=== PATIENT | female | born 1970 | race American Indian/Alaskan Native ===

== ENCOUNTER 2016-11-17 09:37 | Emergency (ER) | payer MEDICAID ==
[2016-11-17 10:20] VITALS: BP 158/99
--- NOTE | 2016-11-17 12:05 | Emergency Department Report ---
HPI - General Chief Complaint: Sore Throat Time Seen by Provider: 11/17/16 11:52 - HPI HPI: 46-year-old female with a past medical history of GERD. Patient is currently taking omeprazole and Carafate for her GERD. Patient reports that the last week or GERD as gotten really bad to the point that is causing her sore throat. She says that her throat otero she has been seen by the ear nose and throat doctor as well as her primary medical doctor and her GI doctor. Last week for the same and was given Tylenol Benadryl lidocaine with no relief. Patient reports that she has gone through 2 bottles of lidocaine without any relief. She reports that she is followed up by Kristin on [facility], as well as Dr. Tamez GI specialist. ED Past Medical Hx - Past Medical History Hx GERD: Yes Hx Asthma: Yes Additional medical history: SCIATIC NERVE PROBLEM, - Surgical History Past Surgical History?: Yes Additional Surgical History: ABLATION TO BACK, Tonsilectomy, c section - Social History Smoking Status: Never Smoker Substance Use Type: None - Medications Home Medications: Home Medications Medication Instructions Recorded Confirmed Last Taken Type Cyclobenzaprine [Flexeril 10mg] 10 mg PO BID 09/23/14 09/23/14 09/23/14 History Tramadol HCl [traMADol] 50 mg PO TID 09/23/14 09/23/14 09/23/14 History Ondansetron [Zofran Odt] 4 mg PO Q6H #14 tab.rapdis 09/24/14 Unknown Rx Prednisone [Prednisone 10 mg 10 mg PO .TAPER #1 tab.ds.pk 09/24/14 Unknown Rx (6-Day Pack, 21 Tabs)] oxyCODONE /ACETAMINOPHEN [Percocet 1 tab PO Q6HR PRN #14 tablet 09/24/14 Unknown Rx 5/325] Famotidine [Pepcid] 20 mg PO BID #60 tablet 10/28/15 Unknown Rx Hyoscyamine Subl [Levsin Sl 0.125 0.125 mg SL Q4HR PRN #10 tablet 10/28/15 Unknown Rx TAB] Ondansetron [Zofran Odt] 4 mg PO Q6H PRN #14 tab.rapdis 10/28/15 Unknown Rx Pantoprazole [Protonix] 40 mg PO BID #60 tablet 10/28/15 Unknown Rx Sulfamethoxazole/Trimethoprim 1 each PO BID #10 tablet 10/28/15 Unknown Rx [Bactrim DS TAB] HYDROcodone/APAP 5-325 [Kingsley 1 each PO Q6HR PRN #14 tablet 08/31/16 Unknown Rx 5-325 mg TAB] Acetaminophen with Codeine 1 tab PO Q6HR #40 tab 11/17/16 Unknown Rx [Acetaminophen-Codeine #4 TAB] Omeprazole 40 mg PO BID #60 capsule. 11/17/16 Unknown Rx ED Review of Systems ROS: Stated complaint: THROAT PAIN Other details as noted in HPI ENT: throat pain Physical Exam - Physical Exam Vital Signs: Vital Signs 11/17/16 10:17 Temperature 98.5 F Pulse Rate 63 Respiratory 18 Rate Blood Pressure 158/99 O2 Sat by Pulse 100 Oximetry Physical Exam: He is alert and oriented 3. Cardiovascular S1-S2 regular rate and rhythm respiratory clear to auscultation bilaterally abdomen soft nontender nondistended HEENT throat is erythematous nonerythematous she is without tonsils. Mouth is moist ED Course Vital Signs 11/17/16 10:17 Temperature 98.5 F Pulse Rate 63 Respiratory 18 Rate Blood Pressure 158/99 O2 Sat by Pulse 100 Oximetry ED Medical Decision Making - Medical Decision Making Been evaluated by this provider in fast track. Discussed with patient that she really needs to follow up her GI doctor will give her a prescription for Tylenol 4 to help with the pain as well as asked to increase her omeprazole to 40 mg twice a day for until she is able to get into her her GI specialist. Recommend patient continue all her medications as prescribed keep all appointments. Critical care attestation.: If time is entered above; I have spent that time in minutes in the direct care of this critically ill patient, excluding procedure time. ED Disposition Clinical Impression: GERD with esophagitis Disposition: DISCHARGED TO HOME OR SELFCARE Is pt being admited?: No Does the pt Need Aspirin: No Condition: Stable Instructions: Gastroesophageal Reflux Disease (ED) Additional Instructions: Increase omeprazole to twice a day. Take the Tylenol for when necessary for excruciating pain. Take all of the medication as prescribed is very important to follow-up with Dr. Schroeder to GI specialist. Need to follow with him within a week. For further evaluation Prescriptions: Acetaminophen with Codeine [Acetaminophen-Codeine #4 TAB] 1 tab PO Q6HR #40 tab Omeprazole 40 mg PO BID #60 capsule.dr Referrals: PRIMARY CARE, [Primary Care Provider] - 3-5 Days [facility] [Outside] - 3-5 Days
[2016-11-17] MEDS ORDERED: NORCO 5/325 PO ONE (12:11)
== END 2016-11-17 12:20 | disposition home or self-care (01) ==
LOC: ED 09:37
DX: K21.0 Gastro-esophageal reflux disease with esophagitis (principal); J45.909 Unspecified asthma, uncomplicated
CPT/HCPCS: 99282

== ENCOUNTER 2017-02-24 15:35 | Emergency (ER) | payer MEDICAID ==
[2017-02-24 17:18] VITALS: BP 140/93
--- NOTE | 2017-02-24 17:21 | Emergency Department Report ---
Chief Complaint: Abdominal Pain Stated Complaint: ABD PAIN - HPI History of Present Illness: severe epigastric pain a/c gerd no n/v home meds not working has seen gi in past ro perf/choley/acs vss - ROS Review of Systems: as noted - Exam Vital Signs: Vital Signs 02/24/17 17:10 Temperature 98.8 F Pulse Rate 78 Respiratory 16 Rate Blood Pressure 140/93 O2 Sat by Pulse 100 Oximetry MSE screening note: Focused history and physical exam performed. Due to findings the following was ordered: ED Disposition for MSE Condition: Stable Instructions: Abdominal Pain (ED)
[2017-02-24 18:11] LABS: Basophils % (Auto) 0.5 % (0.0-1.8); Eosinophils % (Auto) 0.8 % (0.0-4.3); Hematocrit 35.3 % (30.3-42.9); Hemoglobin 11.1 gm/dl (10.1-14.3); Mean Corpuscular HGB Conc 32 % (30-34); Mean Corpuscular Volume 82 fl (79-97); Platelet Count 321 K/mm3 (140-440); Red Blood Count 4.32 M/mm3 (3.65-5.03); White Blood Count 7.1 K/mm3 (4.5-11.0)
[2017-02-24 18:27] LABS: Mean Corpuscular Hemoglobin 26 pg (28-32)
[2017-02-24 18:28] LABS: Alanine Aminotransferase 14 units/L (7-56); Albumin 4.2 g/dL (3.9-5); Albumin/Globulin Ratio 1.4 %; Alkaline Phosphatase 99 units/L (35-129); Amylase 43 units/L (27-131); Anion Gap 18 mmol/L; BUN/Creatinine Ratio 17.14; Bilirubin,Total 0.2 mg/dL (0.1-1.2); Blood Urea Nitrogen 12 mg/dL (7-17); Calcium 9.4 mg/dL (8.4-10.2); Carbon Dioxide 26 mmol/L (22-30); Chloride 101.9 mmol/L (98-107); Glucose 93 mg/dL (65-100); Lipase 29 units/L (13-60); Potassium 4.1 mmol/L (3.6-5.0); Sodium 142 mmol/L (137-145); Total Protein 7.3 g/dL (6.3-8.2)
[2017-02-24 18:31] LABS: Bilirubin,Direct < 0.2 mg/dL (0-0.2)
--- NOTE | 2017-02-25 07:17 | XRay Report ---
CHEST 2 VIEWS INDICATION: Chest pain. COMPARISON: None similar. FINDINGS: PA and lateral chest radiographs demonstrate grossly normal cardiomediastinal silhouette and clear lungs, given the inspiration. Thoracic spondylosis. Possible osteopenia. CONCLUSION: No acute disease in the chest. Thank you for the opportunity to participate in this patient's care.
== END 2017-02-24 18:00 | disposition left against medical advice (07) ==
LOC: ED 15:35
DX: R10.13 Epigastric pain (principal); Z53.21 Procedure and treatment not carried out due to patient leaving prior to being seen by health care provider
CPT/HCPCS: 36415; 71020; 80048; 80074; 82150; 83690; 85025; 93005; 93010